=== PATIENT | female | born 1980 | race Hispanic/Latino ===

== ENCOUNTER → 2018-03-25 | Day surgery (SDC) | payer BC ==
[~2018-03-25] MED LIST: FENTANYL CITRATE/PF 100MCG/2 ML INJ ONE; FLUOXETINE HCL20 MG PO; LIDOCAINE HCL 2% LOCAL INJ 5 ML SDV VIAL INJ ONE; METOCLOPRAMIDE HCL 10 MG/2ML VIAL ONE; MIDAZOLAM HCL 2 MG/2 ML VIAL ONE; PANTOPRAZOLE 40 MG 10ML VIAL ONE; PROPOFOL IV EMULSION 10 MG/ML 50 ML VIAL ONE; TOPIRAMATE25 MG PO
--- NOTE | 2018-03-25 21:26 | Operative Report ---
DATE OF PROCEDURE: March 25, 2018 REFERRING PHYSICIAN: Dr. Jemal Clarke. PROCEDURE PERFORMED: Esophagogastroduodenoscopy with biopsies and esophageal dilatation. INDICATIONS FOR ESOPHAGOGASTRODUODENOSCOPY: Epigastric pain, nausea and vomiting, odynophagia. MEDICATION: Patient was done under MAC. Please see anesthesiologist's note. PROCEDURE: With the patient in the left lateral decubitus position, the flexible fiberoptic Olympus gastroscope was introduced into the esophagus under direct visualization without any difficulty. An approximately 5 mm lesion noted in the cervical esophagus just below the upper esophageal sphincter that was suspicious for a squamous papilloma was partially excised with a cold biopsy forceps. There was some patchy erythema noted in the distal esophagus and a small sliding hiatal hernia. Esophagus was dilated to size 50-Telugu Bey. The scope was then advanced with ease into the stomach. Mucosa overlying the antrum and the body revealed some patchy erythema and low-grade edema, and biopsies were obtained and sent to stain for H. pylori. Pylorus appeared to be of normal contour and shape, was intubated with ease, and the scope was advanced all the way to the 2nd portion of the duodenum. The scope was then withdrawn slowly. Mucosa overlying the proximal 2nd portion and the duodenal bulb appeared to be within normal limits. The scope was then withdrawn back into the stomach and retroflexed, and the mucosa overlying the fundus and the cardia appeared to be within normal limits. The scope was then straightened out. The stomach was decompressed. The scope was subsequently withdrawn. Patient tolerated the procedure well. IMPRESSION: 1. Rule out squamous papilloma, cervical esophagus. 2. Distal esophagitis, mild. 3. Esophagus dilated to a size 50-Telugu Bey. 4. Small sliding hiatal hernia. 5. Gastritis biopsied. Biopsies sent to stain for H. pylori. PLAN: Follow up histology. Initiate Protonix 40 mg 1 p.o. a.c. b.i.d. Job#: [id number] EV cc:JEMAL CLAREK MD
== END | disposition home or self-care (01) ==
LOC: OR 14:31
PROVIDERS: ATTEND Internal Medicine Gastroenterology
DX: K29.70 Gastritis, unspecified, without bleeding (principal); D13.0 Benign neoplasm of esophagus; K20.9 Esophagitis, unspecified; K44.9 Diaphragmatic hernia without obstruction or gangrene; K22.8 Other specified diseases of esophagus; R05 Cough; F41.9 Anxiety disorder, unspecified
CPT/HCPCS: 43239; 43450; 81025; J2001; J2250; J2765